=== PATIENT | female | born 1945 | race Caucasian/White ===

== ENCOUNTER 2021-11-20 13:18 | Outpatient (RCR) | payer MEDICARE, BC, SELFPAY | END 2021-12-14 23:59 | disposition home or self-care (01) | LOC: CCIC 13:18 | PROVIDERS: PCP Family Medicine; Visit Provider Nurse Practitioner Family | DX: C50.911 Malignant neoplasm of unspecified site of right female breast (principal); Z17.0 Estrogen receptor positive status [ER+]; M85.80 Other specified disorders of bone density and structure, unspecified site; Z78.0 Asymptomatic menopausal state | CPT/HCPCS: 99212; 99214 ==

== ENCOUNTER 2023-02-04 13:56 | Outpatient (RCR) | payer MEDICARE, BC, SELFPAY ==
--- NOTE | 2022-07-27 15:25 | ONC.NURNOTE ---
Pt called today to cancel her Roula Devens appt this 07/30/22 due to her being an inpatient at [facility]. Pt antipates she will be staying in [place] for at least a couple weeks. Pt rescheduled for 08/24/22, pt aware she needs to have her bone density test done prior to that appt.
--- NOTE | 2023-02-02 11:41 | ONC.NURNOTE ---
Received refill request for Gabapentin for pt. Per previous notes, pt unable to come in for breast cancer f/u appts due to caring for her 's health. Called pt to schedule; able to come in 02/04 at 1400 to see Alicia Bravo PA-C.
== END 2023-08-03 23:59 | disposition home or self-care (01) ==
LOC: CCIC 13:56
PROVIDERS: PCP Family Medicine; Visit Provider Physician Assistant
DX: C50.911 Malignant neoplasm of unspecified site of right female breast (principal); C50.912 Malignant neoplasm of unspecified site of left female breast; Z17.0 Estrogen receptor positive status [ER+]; Z79.811 Long term (current) use of aromatase inhibitors; Z90.13 Acquired absence of bilateral breasts and nipples; M85.80 Other specified disorders of bone density and structure, unspecified site; M79.2 Neuralgia and neuritis, unspecified; L98.9 Disorder of the skin and subcutaneous tissue, unspecified; M79.601 Pain in right arm
CPT/HCPCS: 99212; 99214; 99215

== ENCOUNTER 2023-08-04 14:46 | Outpatient (CLI) | payer MEDICARE, BC, SELFPAY ==
--- NOTE | 2023-08-04 15:00 | XR_ITS ---
Patient: MUMTAZ BADILLO Facility:?[facility] Patient ID:?[id number] Site Patient ID:?[id number]. Site :?[id number] Study:?DEXA-Bone Density SPINE/BOTH HIPS-08/04/2023 3:31:01 PM Ordering Physician:JON Final Report: DXA BONE MINERAL DENSITY STUDY Reason for exam: Monitor on aromatase inhibitor. Current height (in): 60. Weight (lb): 152. Menopause age: 50. Ethnicity: White. 1. Have you had a previous hip or vertebral fracture? No. 2. Have you had any fractures during your adult life which did not result from significant trauma (e.g., auto accident)? No. 3. Did either of your parents have a hip fracture? No. 4. Do you smoke? No. 5. Have you ever taken Glucocorticoids? No. 6. Do you have rheumatoid arthritis? No. 7. Do you have secondary osteoporosis? No. 8. Do you drink 3 or more alcoholic drinks per day? No. 9. Are you being treated for osteoporosis? No. 10. Have you ever taken any of the following medications: Actonel, Evista, Fosamax, Miacalcin, Reclast, Boniva, Forteo, HRT (i.e., estrogen/hormone therapy), Protelos, Prolia, Vitamin D, Calcium, other ? please specify. ANSWER: Yes, Actonel (i.e. risedronate), vitamin D, and calcium. 11. Do you have any of the following medical conditions: Anorexia or bulimia, asthma or emphysema, end stage renal disease, hyperparathyroidism, any seizure disorders, cancer, inflammatory bowel diseases, hysterectomy, other ? please specify. ANSWER: Yes, history of breast cancer and hysterectomy. 12. What was your maximum height (inches)? 61.5. 13. Do you perform weight bearing exercise regularly? Yes. 14. Do you regularly consume dairy products? Yes. 15. Do you drink caffeinated beverages? Yes. If female: 16. At what age did your period start? 13. 17. Are you premenopausal? No. 18. How many full-term pregnancies have you had? 2. 19. Have you ever missed your period for more than 6 months in a row (not including or menopause)? No. TECHNIQUE: Bone mineral density study was performed using the [employer]. FINDINGS: The results of the study expressed as bone mineral density (BMD) are as follows: Lumbar spine L1 to L4: BMD: 0.903 g/cm2. T-score: -1.3. Z-score: 1.3 Neck Left: BMD: 0.577 g/cm2. T-score: -2.5. Z-score: -0.2 Right: BMD: 0.617 g/cm2. T-score: -2.1. Z-score: 0.1 Total Left: BMD: 0.732 g/cm2. T-score: -1.7. Z-score: 0.2 Right: BMD: 0.757 g/cm2. T-score: -1.5. Z-score: 0.4 IMPRESSION: Osteoporosis. *Comparison exams done prior to 10/2019 were performed on different unit, [facility]. COMPARISON: Compared with scan of 11/08/2019, the bone mineral density has decreased by 1.2 percent at the spine and decreased by 0.8 percent at the hip. Kwadwo Erwin M.D. Diagnostic Radiologist [email or web address] D& Transcribed: 1:06 p.mAlex bautista/Dictated by: Kwadwo Erwin MD @ 08/05/2023 9:12:00 AM Signed by:?Kwadwo Erwin MD @08/05/2023 1:42:37 PM
== END 2023-08-04 14:47 | disposition home or self-care (01) ==
LOC: RAD 14:47
PROVIDERS: PCP Family Medicine; Visit Provider Physician Assistant
DX: M81.0 Age-related osteoporosis without current pathological fracture (principal); Z79.811 Long term (current) use of aromatase inhibitors
CPT/HCPCS: 77080

== ENCOUNTER 2023-08-09 12:38 | Outpatient (RCR) | payer MEDICARE, BC, SELFPAY | END 2024-02-05 23:59 | disposition home or self-care (01) | LOC: CCIC 12:38 | PROVIDERS: PCP Family Medicine; Visit Provider Physician Assistant | DX: C50.911 Malignant neoplasm of unspecified site of right female breast (principal); C50.912 Malignant neoplasm of unspecified site of left female breast; Z17.0 Estrogen receptor positive status [ER+]; Z90.13 Acquired absence of bilateral breasts and nipples; M79.2 Neuralgia and neuritis, unspecified; L98.9 Disorder of the skin and subcutaneous tissue, unspecified; M81.0 Age-related osteoporosis without current pathological fracture | CPT/HCPCS: 99214; G0463 ==

== ENCOUNTER 2024-07-27 12:50 | Outpatient (RCR) | payer MEDICARE, BC, SELFPAY | END 2024-08-05 23:59 | disposition home or self-care (01) | LOC: CCIC 12:50 | PROVIDERS: PCP Family Medicine; Visit Provider Physician Assistant | DX: C50.911 Malignant neoplasm of unspecified site of right female breast (principal); C50.912 Malignant neoplasm of unspecified site of left female breast; Z17.0 Estrogen receptor positive status [ER+]; M79.2 Neuralgia and neuritis, unspecified; M81.0 Age-related osteoporosis without current pathological fracture; Z79.810 Long term (current) use of selective estrogen receptor modulators (SERMs); Z90.13 Acquired absence of bilateral breasts and nipples | CPT/HCPCS: 99214; G0463 ==